=== PATIENT | female | born 1960 | race Caucasian/White ===

== ENCOUNTER → 2017-04-26 | Outpatient (CLI) | payer OTHER ==
[~2017-04-26] VITALS: Ht 167.6 cm; Wt 73.0 kg
[~2017-04-26] MED LIST: ALLEGRA60 MG PO; BALANCED B-501 EAC1 SL; CALCIUM500 M4 PO; DAILY VITAMIN1 EAC5 PO; MENOPAUSE SUPPO20 MG PO; PROBIOTIC1 EAC3 PO; VITAMIN D1000 INTUN PO
== END | disposition home or self-care (01) ==
LOC: AMB 06:58
DX: Z12.11 Encounter for screening for malignant neoplasm of colon (principal); K44.9 Diaphragmatic hernia without obstruction or gangrene; K62.89 Other specified diseases of anus and rectum; Z86.010 Personal history of colon polyps; K57.30 Diverticulosis of large intestine without perforation or abscess without bleeding; R07.89 Other chest pain; K59.09 Other constipation; K21.9 Gastro-esophageal reflux disease without esophagitis; Z80.0 Family history of malignant neoplasm of digestive organs; Z80.3 Family history of malignant neoplasm of breast; Z82.49 Family history of ischemic heart disease and other diseases of the circulatory system; Z83.3 Family history of diabetes mellitus; Z83.49 Family history of other endocrine, nutritional and metabolic diseases; Z80.8 Family history of malignant neoplasm of other organs or systems; Z80.1 Family history of malignant neoplasm of trachea, bronchus and lung; Z80.49 Family history of malignant neoplasm of other genital organs
CPT/HCPCS: 93005; J2250